=== PATIENT | female | born 1965 | race Caucasian/White ===

== ENCOUNTER 2018-09-02 06:45 | Day surgery (SDC) | payer MEDICAID ==
[~2018-09-02 06:45] MED LIST: ALENDRONATE SOD70 MG PO; ALLERGY NA50 MCG/ACT; AMLODIPINE10 MG PO; ATIVAN1 M1 PO; BACLOFEN20 MG PO; BC HEADACH1 PO; CALCI23 PO; CALNA PO; DICLOFENAC50 MG PO; DONEPEZIL10 MG PO; FLUOXETINE40 MG PO; GABAPENTIN400 M2 PO; IMITREX100 M1 PO; LEVOTHYROXIN100 MCG PO; LIORESAL10 MG/TA1 PO; LITHIUM CARB300 MG PO; MIRTAZAPINE15 MG PO; OMEPRAZOLE20 M2 PO; OXCARBAZEPINE600 MG PO; PATADAY0.2 %; PROAIR HFA108 MCG/AC; PROZAC40 MG PO; RISPERDAL M0.5 MG PO; TRAZODONE150 MG PO; VITAMIN B12500 MC1 PO; VITAMIN B6100 MG; VITAMIN D32000 UNIT PO; XANAX0.5 MG PO
[2018-09-02 08:50] VITALS: BP 111/63
[2018-09-02] MEDS ORDERED: NORCO1 TA2 PO (09:25)
== END 2018-09-02 09:32 | disposition home or self-care (01) ==
LOC: ORM 06:45
PROVIDERS: ATTEND Anesthesiology Pain Medicine
DX: M46.1 Sacroiliitis, not elsewhere classified (principal)